=== PATIENT | male | born 1950 | race Caucasian/White ===

== ENCOUNTER 2016-08-03 21:58 | Emergency (ER) | payer BC ==
--- NOTE | 2016-08-03 22:19 | PDOC ---
History of Present Illness - General Chief Complaint: Lightheaded Stated Complaint: DIZZINESS, HYPOTENSION Time Seen by Provider: 08/03/16 22:00 History Source: Patient Exam Limitations: No Limitations - History of Present Illness Initial Comments: 08/03/16 22:54 This is a 66-year-old male who was brought in via EMS for evaluation of dizziness and hypotension. On arrival in the emergency room it was noted the patient had a rapid heartbeat of approximately 213. His blood pressure on arrival was approximately 67/46. Patient was otherwise without complaints. He was somewhat to Make on arrival and mildly hypoxic. Patient denied any chest pain shortness of breath however he was noted to be mildly diaphoretic. Patient was otherwise mentating normally and without complaints. Initial cardiogram showed a rapid wide complex tachycardic that was monomorphic. Patient was given adenosine 6 mg with no change in his rhythm it was then repeated at 12 mg still with no change in his rhythm. At that pain patient begin to deteriorate so the decision was made to cardiovert him. Patient was cardioverted with synchronized cardioversion. He was sedated with 100 mg of propofol and then initially was given 120 J with no conversion. Patient was then shocked with 200 joules still with no cardioversion. Repeat shock was another 200 J which resulted in cardioversion to a sinus rhythm at a rate of approximately 60. Repeat cardiogram after cardioversion showed sinus rhythm with some PACs. Also some ST-T wave abnormalities consistent with probable lateral ischemia. PAST MEDICAL HISTORY: Hypertension, high cholesterol PAST SURGICAL HISTORY: no significant history FAMILY HISTORY: no pertinant history SOCIAL HISTORY: Pt lives with family and is employed. MEDICATIONS: reviewed ALLERGIES: As per nursing notes Review of Systems General: No fevers or chills, no weakness, no weight loss HEENT: No change in vision. No sore throat,. No ear pain CardioVascular: No chest pain or shortness of breath Respiratory:No cough, or wheezing. Gastrointestinal: no nausea, vomitting, diarrhea or constipation, No rectal bleeding Genitourinary: No dysuria, hematuria, or frequency Musculoskeletal: No joint or muscle pain or swelling Neurologic: No headache, vertigo, dizziness or loss of consciousness Psychiatric: nor depression Skin: No rashes or easy bruising Endocrine: no increased thirst or abnormal weight change Allergic: no skin or latex allergy All other systems reviewed and normal Exam: General: Well-nourished well-developed individual, no acute distress HEENT: Throat: Normal, tonsils normal, no erythema or exudate Neck: Supple, no meningeal signs, no lymphadenopathy Eyes::Pupils equal reactive and round, extraocular motion intact Chest: Nontender to palpation Cardiac: S1-S2 normal, rapid tachycardic, regular rate and rhythm, no murmurs rubs or gallops Respiratory: Lungs clear to auscultation bilateral Abdomen: Soft, nondistended, normal bowel sounds, nontender to palpation diffusely Extremities: Warm, dry, no cyanosis, clubbing, or edema Skin: No rashes, mild diaphoresis Neuro: Alert and oriented x3, nonfocal exam, grossly intact, normal gait Psych: Normal mood and affect 23:30 Discussed the admission with Dr. Stack wet end operator who agrees patient should be admitted to the cardiac ICU over there at [facility] 00:15 [facility] Patient will be admitted to the ICU. 00:20 Discussed admission with the [facility] manager community development nurse practitioner who agreed to the admission at the ICU. 00:25 Patient would prefer to go to [facility] rather than [facility] X planed to the patient did that he has been admitted to [facility] it is sizable that he go there however I did call [facility] transfer center and speak with the transfer center regarding possible transfer of this patient to them at [facility]. Patient's wet end operator will be contacted by the transfer center to see if he is able to accept this patient for admit admission. And waiting to hear back from the transfer center regarding a possible admission. 08/04/16 01:03 Patient has been instructed to a bed at [facility] the bed is an ICU bed and he will be accepted to a Dr. Sun. [facility] will send the transport team to pick him up. Past History - Past Medical History Allergies/Adverse Reactions: Allergies Allergy/AdvReac Type Severity Reaction Status Date / Time No Known Allergies Allergy Verified 12/30/11 09:34 Home Medications: Ambulatory Orders Aspirin [ASA -] 162 mg PO DAILY 12/30/11 Atorvastatin Ca [Lipitor] 40 mg PO DAILY 12/30/11 Carvedilol Phosphate [Coreg Cr -] 5 mg PO DAILY 12/30/11 Ezetimibe [Zetia -] 5 mg PO DAILY 12/30/11 Lisinopril [Zestril] 5 mg PO DAILY 08/03/16 Anemia: No Asthma: No Cancer: No Cardiac Disorders: Yes (ANGIOPLASTY 1997) CVA: No COPD: No CHF: No Dementia: No Diabetes: No GI Disorders: No Disorders: No HTN: Yes Hypercholesterolemia: Yes Liver Disease: No Seizures: No Thyroid Disease: No - Surgical History Abdominal Surgery: No Appendectomy: No Cardiac Surgery: Yes (ANGIOPLASTY 1997) Cholecystectomy: No Lung Surgery: No Neurologic Surgery: No Orthopedic Surgery: No - Psycho/Social/Smoking Cessation Hx Smoking History: Current every day smoker Have you smoked in the past 12 months: Yes Number of Cigarettes Smoked Daily: 10 Hx Alcohol Use: Yes (SOCIAL) Drug/Substance Use Hx: No Substance Use Type: Alcohol Hx Substance Use Treatment: No ED Treatment Course - LABORATORY CBC & Chemistry Diagram: 08/03/16 22:15 08/03/16 22:15 Medical Decision Making - Critical Care Time Total Critical Care Time (minutes): 75 Critical Care Statement: The care of this patient involved high complexity decision making to prevent further life threatening deterioration of the patient 's condition and/or to evalute & treat vital organ system(s) failure or risk of failure. *DC/Admit/Observation/Transfer Diagnosis at time of Disposition: Cardioversion - Discharge Dispostion Disposition: TRANSFER ACUTE CARE/OTHER HOSP Condition at time of disposition: Stable
[2016-08-03 22:26] VITALS: TEMP 97.1; BMI 26.4
[2016-08-03] MEDS ORDERED: PROPOFOL 100 ML ONE (22:42)
[2016-08-03] MEDS ORDERED: ADENOSINE 6 MG/2 ML VIAL IVPUSH ONE ×2 (23:12)
[2016-08-03] MEDS ORDERED: PROPOFOL 200 MG/20 ML VIAL IVPUSH ONE (23:13)
[2016-08-03 23:15] LABS: BASOPHIL 0.7 % (0-2.0); MCH 31.8 pg (25.7-33.7); MCHC 33.2 g/dl (32.0-35.9); MEAN CELL VOLUME 95.8 fl (80-96); MEAN PLT VOLUME 8.5 fl (7.5-11.1); NEUTROPHILS 49.5 % (42.8-82.8); PLATELET COUNT 342 K/MM3 (134-434); RDW 13.8 % (11.9-15.9); WHITE BLOOD COUNT 12.1 K/mm3 (4.0-10.0)
[2016-08-03 23:23] LABS: INR 1.09 (0.82-1.09); PROTHROMBIN TIME (PATIENT) 12.2 SEC (10.2-13.0)
[2016-08-03 23:28] LABS: CPK(DFH) 142 IU/L (38-174)
[2016-08-03 23:29] LABS: ALBUMIN 4.1 g/dl (3.5-5.0); BILIRUBIN,TOTAL 0.8 mg/dl (0.2-1.0); CALCIUM 9.7 mg/dl (8.4-10.2); CREATININE 1.6 mg/dl (0.6-1.3)
[2016-08-03 23:55] LABS: TROPONIN I (DFP) < 0.03 ng/ml (0.03-0.50)
[2016-08-04 01:55] VITALS: BP 93/63; PULSE 69
--- NOTE | 2016-08-04 10:38 | EKG ---
Test Reason : Blood Pressure : / mmHG Vent. Rate : 061 BPM Atrial Rate : 061 BPM P-R Int : 200 ms QRS Dur : 096 ms QT Int : 466 ms P-R-T Axes : 054 102 148 degrees QTc Int : 469 ms SINUS RHYTHM WITH WITH 1ST DEGREE A-V BLOCK PAC RIGHTWARD AXIS ANTEROSEPTAL INFARCT , AGE UNDETERMINED ABNORMAL ECG WHEN COMPARED WITH ECG OF 03-AUG-2016 22:26, SINUS RHYTHM HAS REPLACED VENTRICULAR TACHYCARDIA VENT. RATE HAS DECREASED BY 152 BPM Confirmed by PRABHA BETH MD ([id number]) on 08/04/2016 10:38:37 AM Referred By: Confirmed By:PRABHA BETH MD
--- NOTE | 2016-08-04 10:40 | EKG ---
Test Reason : Blood Pressure : / mmHG Vent. Rate : 213 BPM Atrial Rate : 208 BPM P-R Int : 000 ms QRS Dur : 172 ms QT Int : 282 ms P-R-T Axes : 000 096 110 degrees QTc Int : 531 ms VENTRICULAR TACHYCARDIA ABNORMAL ECG NO PREVIOUS ECGS AVAILABLE Confirmed by PRABHA BETH MD ([id number]) on 08/04/2016 10:40:22 AM Referred By: MD DENNIS Confirmed By:PRABHA BETH MD
== END 2016-08-04 02:30 | disposition short-term general hospital (02) ==
LOC: FER 21:58
PROC: 5A2204Z Restoration of Cardiac Rhythm, Single (ICD-10-PCS; principal; 2016-08-03)
PROC: 3E033GC Introduction of Other Therapeutic Substance into Peripheral Vein, Percutaneous Approach (ICD-10-PCS; 2016-08-03)
DX: R00.0 Tachycardia, unspecified (principal); F17.210 Nicotine dependence, cigarettes, uncomplicated; Z79.82 Long term (current) use of aspirin; I10 Essential (primary) hypertension
CPT/HCPCS: 36415; 71010-TC; 80053; 82550; 84484; 85025; 85610; 93005; 93010; 99285-25

== ENCOUNTER 2017-03-11 19:43 | Emergency (ER) | payer BC, OTHER ==
[2017-03-11 19:48] VITALS: BP 143/80; PULSE 65; TEMP 98.8; BMI 26.4
--- NOTE | 2017-03-11 21:13 | PDOC ---
History of Present Illness <Merary Elliottew - Last Filed: 03/11/17 21:48> - History of Present Illness Initial Comments: 03/12/17 02:35 Patient is a 66 year old male with a significant past medical history of hypertension, high cholesterol, Vtach s/p defibrillator, CA who presents to the ED s/p accident to fifth digit on the right hand at 4pm today. Patient reports smashing his right fifth digit at 4pm with a sledge hammer while hammering a pipe. He reports going to the Urgent care center where they irrigated and sutured his injury before sending him to the ED for orthopedics consultation. Patient did not rate pain but stated he was able to go to sleep soon after the injury before waking up due to the pain. He reports being given a tetanus shot at the urgent care center. Pt presents with an XR that shows a cortical avulsion of the ulnar side of the tuft of the right 5th distal phalynx. Denies chest pain, SOB. Denies fever, chills. Denies dizziness, headache. Denies any other symptoms. Allergies: None Social history: No smoking. No alcohol. No illicit drugs. Surgical history: None PMD: Dr. Mcdaniels <Ary Escobar - Last Filed: 03/12/17 03:01> - General Chief Complaint: Injury Stated Complaint: SENT FOR ABX Time Seen by Provider: 03/11/17 21:12 Past History <Diogo Elliott - Last Filed: 03/11/17 21:48> - Past Medical History Anemia: No Asthma: No Cancer: No Cardiac Disorders: Yes (ANGIOPLASTY 1997) CVA: No COPD: No CHF: No Dementia: No Diabetes: No GI Disorders: No Disorders: No HTN: Yes Hypercholesterolemia: Yes Liver Disease: No Seizures: No Thyroid Disease: No - Surgical History Abdominal Surgery: No Appendectomy: No Cardiac Surgery: Yes (ANGIOPLASTY 1997) Cholecystectomy: No Lung Surgery: No Neurologic Surgery: No Orthopedic Surgery: No - Psycho/Social/Smoking Cessation Hx Anxiety: No Suicidal Ideation: No Smoking History: Current some day smoker Have you smoked in the past 12 months: Yes Number of Cigarettes Smoked Daily: 10 Information on smoking cessation initiated: Yes 'Breaking Loose' booklet given: 03/11/17 Hx Alcohol Use: Yes (SOCIAL) Drug/Substance Use Hx: No Substance Use Type: Alcohol Hx Substance Use Treatment: No <WalterRod denisejose - Last Filed: 03/12/17 03:01> - Past Medical History Allergies/Adverse Reactions: Allergies Allergy/AdvReac Type Severity Reaction Status Date / Time No Known Allergies Allergy Verified 12/30/11 09:34 Home Medications: Ambulatory Orders Aspirin [ASA -] 162 mg PO DAILY 12/30/11 Atorvastatin Ca [Lipitor] 40 mg PO DAILY 12/30/11 Carvedilol Phosphate [Coreg Cr -] 5 mg PO DAILY 12/30/11 Ezetimibe [Zetia -] 5 mg PO DAILY 12/30/11 Lisinopril [Zestril] 5 mg PO DAILY 08/03/16 Cephalexin [Keflex] 500 mg PO Q6H #28 capsule 03/11/17 Review of Systems - Review of Systems Comments:: 03/12/17 02:36 GENERAL/CONSTITUTIONAL: No fever or chills. No weakness. HEAD, EYES, EARS, NOSE AND THROAT: No change in vision. No ear pain or discharge. No sore throat. GASTROINTESTINAL: No nausea, vomiting, diarrhea or constipation. GENITOURINARY: No dysuria, frequency, or change in urination. CARDIOVASCULAR: No chest pain or shortness of breath. RESPIRATORY: No cough, wheezing, or hemoptysis. MUSCULOSKELETAL: +R fifth finger pain. No neck or back pain. SKIN: No rash NEUROLOGIC: No headache, vertigo, loss of consciousness, or change in strength/ sensation. ENDOCRINE: No increased thirst. No abnormal weight change. HEMATOLOGIC/LYMPHATIC: No anemia, easy bleeding, or history of blood clots. ALLERGIC/IMMUNOLOGIC: No hives or skin allergy. <Ary Escobar - Last Filed: 03/12/17 03:01> *Physical Exam - Vital Signs Last Vital Signs Temp Pulse Resp BP Pulse Ox 98.8 F 65 18 143/80 96 03/11/17 19:44 03/11/17 19:44 03/11/17 19:44 03/11/17 19:44 03/11/17 19:44 <Diogo Elliott - Last Filed: 03/11/17 21:48> - Vital Signs Last Vital Signs Temp Pulse Resp BP Pulse Ox 98.8 F 65 18 143/80 96 03/11/17 19:44 03/11/17 19:44 03/11/17 19:44 03/11/17 19:44 03/11/17 19:44 - Physical Exam Comments: 03/12/17 02:36 GENERAL: Awake, alert, and fully oriented, in no acute distress HEAD: No signs of trauma EYES: PERRLA, EOMI, sclera anicteric, conjunctiva clear ENT: Auricles normal inspection, hearing grossly normal, nares patent, oropharynx clear without exudates. Moist mucosa NECK: Normal ROM, supple, no lymphadenopathy, JVD, or masses LUNGS: Breath sounds equal, clear to auscultation bilaterally. No wheezes, and no crackles HEART: Regular rate and rhythm, normal S1 and S2, no murmurs, rubs or gallops ABDOMEN: Soft, nontender, normoactive bowel sounds. No guarding, no rebound. No masses EXTREMITIES: R fifth finger with laceration extending from nail bed to ulnar aspect of the distal interphalangeal crease. Laceration partially repaired with 3 nylon sutures with a small amount of oozing near the nail bed. Pt able to range right fifth digit fully, with good flexion, extension, adduction and abduction. Normal sensation in entire right hand. 2+ radial pulses. BACK: No midline spinal tendernes in cervial/throacic/lumbar region NEUROLOGICAL: Normal speech, cranial nerves intact, negative pronator drift, 5/ 5 strength in all 4 extremities, normal sensation to light touch in all 4 extremities, normal cerebellar exam, normal gait, normal reflexes and tone SKIN: Warm, Dry, normal turgor, no rashes <Ary Escobar - Last Filed: 03/12/17 03:01> Medical Decision Making - Medical Decision Making 03/11/17 21:[address] Garay @21:17pm. Awaiting call back Called back @21:24pm. Case discussed. <Diogo Elliott - Last Filed: 03/11/17 21:48> - Medical Decision Making 03/12/17 02:36 66-year-old male presents with open fracture to the distal right fifth digit. Vitals unremarkable. I added a 4th suture to the area that was oozing blood near the nail bed and placed the finger in a splint. Upon consultation with Kaden Robledo from ortho, they recommend a dose of ancef here and Keflex BID and to f/u with Dr. Rossi on Monday. I offered the patient admission for IV antibiotics given the high likelihood of infection to the finger and he is adamant about going home. I gave him strict return precautions on what to look out for - if there is purulent drainage, increasing redness, uncontrolled pain, inccreasing swelling, or fevers, he should return immediately to the ED. <Ary Escobar - Last Filed: 03/12/17 03:01> *DC/Admit/Observation/Transfer <Diogo Elliott - Last Filed: 03/11/17 21:48> - Discharge Dispostion Admit: No - Attestations Physician Attestion: 03/11/17 23:56 I, Dr. Ary Escobar MD, attest that this document has been prepared under my direction and personally reviewed by me in its entirety. I further attest, that it accurately reflects all work, treatment, procedures and medical decision -making performed by me. <Ary Escobar - Last Filed: 03/12/17 03:01> Diagnosis at time of Disposition: Avulsion fracture of distal phalanx of finger Qualifiers: Encounter type: subsequent encounter Fracture type: open Fracture healing: with routine healing Qualified Code(s): S62.639D - Displaced fracture of distal phalanx of unspecified finger, subsequent encounter for fracture with routine healing - Discharge Dispostion Disposition: HOME Condition at time of disposition: Stable - Prescriptions Prescriptions: Cephalexin [Keflex] 500 mg PO Q6H #28 capsule - Referrals Referrals: Guilherme Mcdaniels [Primary Care Provider] - - Patient Instructions Printed Discharge Instructions: How to Care for a Laceration After Repair Additional Instructions: You have an wound that has a high risk of becoming infected. Please take your antibiotics as prescribed. Please follow up with Dr. Flo Martin on Monday. Call for an appointment. Please return to the emergency room immediately for any new, concerning, or worsening symptoms.
[2017-03-11] MEDS ORDERED: CEFAZOLIN 1 GM in DEXTROSE 5%-WATER - 50 ML IVPB ONE (22:15)
[2017-03-11] MEDS ORDERED: ceFAZolin SODIUM 1 GM VIAL ONE (22:20)
== END 2017-03-12 00:02 | disposition home or self-care (01) ==
LOC: FER 19:43
PROC: 0HQFXZZ Repair Right Hand Skin, External Approach (ICD-10-PCS; principal; 2017-03-11)
PROC: 3E03329 Introduction of Other Anti-infective into Peripheral Vein, Percutaneous Approach (ICD-10-PCS; 2017-03-11)
DX: S62.639D Displaced fracture of distal phalanx of unspecified finger, subsequent encounter for fracture with routine healing (principal); W20.8XXD Other cause of strike by thrown, projected or falling object, subsequent encounter; Y93.89 Activity, other specified; Y92.9 Unspecified place or not applicable; I10 Essential (primary) hypertension; E78.00 Pure hypercholesterolemia, unspecified; I47.2 Ventricular tachycardia
CPT/HCPCS: 99282-25